=== PATIENT | female | born 1985 | race Caucasian/White ===

== ENCOUNTER 2017-02-02 19:04 | Emergency (ER) | payer OTHER ==
[~2017-02-02] VITALS: Ht 165.1 cm; Wt 130.5 kg
[~2017-02-02 19:04] MED LIST: NAPR-260 PO; PREN-39 PO
[2017-02-02 19:18] VITALS: Ht 165.1 cm; Wt 130.5 kg
[2017-02-02] MEDS ORDERED: ALBUTEROL 0.083% (NEB) 2.5 MG/3 ML AMP HHN STA (19:40)
[2017-02-02 19:52] LABS: URINE BLOOD (Dip) POC Trace-intact (NEGATIVE)
[2017-02-02] MEDS ORDERED: IPRATROPIUM (NEB) 0.5 MG/2.5 ML AMP HHN ONE (20:00)
[2017-02-02 20:26] LABS: ADD SCAN DIFF NO
[2017-02-02 20:36] LABS: BASOPHILS % 0.2 % (0.0-2.0); EOSINOPHILS % 0.1 % (0.0-7.0); HEMOGLOBIN 11.7 g/dl (12.0-16.0); LYMPHOCYTES # 1.3 10^3/ul (0.8-2.9); LYMPHOCYTES % 10.3 % (15.0-51.0); MEAN CORPUSCULAR HEMOGLOBIN 23.4 pg (29.0-33.0); MEAN CORPUSCULAR HGB CONC 31.6 g/dl (32.0-37.0); MEAN CORPUSCULAR VOLUME 74.1 fl (82.0-101.0); MONOCYTE # 0.3 10^3/ul (0.3-0.9); MONOCYTES % 2.1 % (0.0-11.0); NEUTROPHIL # 10.5 10^3/ul (1.6-7.5); NEUTROPHILS % 86.8 % (39.0-77.0); PLATELET COUNT 414 10^3/UL (140-415); RED BLOOD COUNT 4.99 10^6/ul (4.20-5.40); RED CELL DISTRIBUTION WIDTH 17.7 % (11.5-14.5); WHITE BLOOD COUNT 12.1 10^3/ul (4.8-10.8)
[2017-02-02 20:39] LABS: ADD UMIC YES; UR BILIRUBIN (Dip) NEGATIVE (NEGATIVE); UR BLOOD (Dip) TRACE (NEGATIVE); UR CLARITY CLEAR (CLEAR); UR COLOR LT. YELLOW (YELLOW); UR GLUCOSE (Dip) NEGATIVE (NEGATIVE); UR KETONES (Dip) NEGATIVE (NEGATIVE); UR LEUKOCYTE ESTERASE (Dip) TRACE (NEGATIVE); UR NITRITE (Dip) NEGATIVE (NEGATIVE); UR TOTAL PROTEIN (Dip) NEGATIVE (NEGATIVE); UR UROBILINOGEN (Dip) 1.0 E.U./dL (0.1-1.0)
[2017-02-02 20:51] LABS: URINE RBCS 0-2 /HPF (0)
[2017-02-02 20:52] LABS: UR BACTERIA RARE; UR SQUAMOUS EPITHELIAL CELL FEW
--- NOTE | 2017-02-02 21:58 | RADRPT ---
PROCEDURE: US OB. CLINICAL INDICATION: 31-year-old female with vaginal bleeding. TECHNIQUE: Transabdominal and transvaginal views of the pelvis are available for review. COMPARISON: No prior studies are available for comparison. FINDINGS: The uterus measures 9.1 cm sagittal by 4.6 cm AP by 6.7 cm transverse. It contains a gestational sa c with a circumferential grade 0 placenta. Placenta: Grade 0 circumferential. Presentation:No pole is identified. A small yolk sac is noted. Mean sac diameter:0.7 cm: 5 weeks 1 day. heart rate:Cardiac activity cannot be detected at this early stage with clarity. Amniotic fluid volume: Normal. Ultrasound estimated gestational age:5 weeks 1 day plus or minus 0 weeks 3 days. MARY (AUA): 10/04/2017. No ovarian or adnexal mass lesion is seen. There is no free fluid. The right ovary measured 2.8 x 1. 6 x 1.5 cm. There is normal blood flow to the right ovary and Doppler imaging. The left ovary winifred ures 2 x 1.3 by 1.4 cm and is normal blood flow on Doppler imaging. There is trace free fluid in th e cul-de-sac. IMPRESSION: 1. A gestational sac is identified. Mean sac diameter calculates out to 5 weeks 1 day plus or rolo s 0 weeks 3 days 2. A yolk sac is identified with a pole and heart rate are not yet detected at this age. Follow-up imaging is recommended to confirm viability. 3. Trace fluid in the cul-de-sac. 4. Normal ovaries. RPTAT:AAJJ Physician Michael Date Time Electronically viewed and signed by Physician Michael on 02/02/2017 21:58 JM/
[2017-02-02] MEDS ORDERED: ALBU8.5H3 INH (22:31)
--- NOTE | 2017-02-02 22:40 | ERD ---
ER Documentation Chief Complaint Date/Time DATE: 02/02/17 TIME: 22:36 Chief Complaint dry cough, sob has asthma inhaler doesnt work HPI Patient is a 31-year-old female who presents to the ED with cough, congestion and wheezing 3 days. She has a history of asthma and states this is similar to what she has experienced in the past. She states that she has been using her inhaler at home which is helped minimally with her symptoms. She denies fever or chills. Denies chest pain. Denies leg pain or leg swelling. Denies recent travel or recent surgeries. Patient also would like to get a test as she states that she has not had her period in the last 3 months and she is currently sexually active. She denies pelvic pain or vaginal bleeding or headache or dizziness. She has no other complaints. ROS All systems reviewed and are negative except as per history of present illness. Medications Home Meds Active Scripts Albuterol Sulfate* (Proair HFA*) 8.5 Gm Hfa.aer.ad, 2 PUFF INH Q4, #1 INHALER Prov:SILVIA CROW PA-C 02/02/17 Naproxen* (Naprosyn*) 500 Mg Tablet, 500 MG PO BID Y for PAIN AND/OR INFLAMMATION, #30 TAB Prov:SONIA REYNA PA-C 12/15/15 Reported Medications Vits W-Ca,Fe,Fa(<1MG) ( Vitamins) 1 Tab Tablet, 1 TAB PO DAILY 09/14/13 Allergies Allergies: Coded Allergies: No Known Allergy (Verified , 02/02/17) PMhx/Soc History of Surgery: Yes (Abdirizak RAMIREZ (1998)) Anesthesia Reaction: No Hx Neurological Disorder: No Hx Respiratory Disorders: Yes (ASTHMA) Hx Cardiac Disorders: No Hx Psychiatric Problems: No Hx Miscellaneous Medical Probl: No Hx Alcohol Use: No Hx Substance Use: No Hx Tobacco Use: No Smoking Status: Never smoker Physical Exam Vitals Vital Signs Date Time Temp Pulse Resp B/P Pulse Ox O2 Delivery O2 Flow Rate FiO2 02/02/17 20:04 97 22 97 21 02/02/17 19:18 98.5 110 18 165/75 100 Physical Exam GENERAL: Well-developed, well-nourished female. Appears in no acute distress. HEAD: Normocephalic, atraumatic. EYES: Pupils are equally reactive bilaterally. EOMs grossly intact. No conjunctival erythema. ENT: Moist mucous membranes. No uvula deviation. No kissing tonsils. No exudates. NECK: Supple. No lymphadenopathy or thyromegaly. No meningismus. negative kernig. negative brudinski. LUNG: Clear to auscultation bilaterally. No rhonchi, wheezing, rales or coarse breath sounds. HEART: Regular rate and rhythm. No murmurs, rubs or gallops. ABDOMEN: No scars, ecchymosis or rashes noted. Soft, nontender, and nondistended. Positive bowel sounds in all four quadrants. No rebound tenderness , no guarding. (-) McBurneys point tenderness. No CVA tenderness. BACK: No midline tenderness. Extremities: Equal pulses bilaterally. No peripheral clubbing, cyanosis or edema. No unilateral leg swelling. Negative Homans sign. No palpable cord. NEUROLOGIC: Alert and oriented. Moving all four extremities. 5/5 strength in all extremities. Normal speech. Steady gait. SKIN: Normal color. Warm and dry. No rashes or lesions. Capillary refill < 2 seconds Result Diagram: 02/02/171954 Results 24 hrs Laboratory Tests Test 02/02/17 19:45 02/02/17 19:55 02/02/17 19:56 Urine Color LT. YELLOW Urine Clarity CLEAR Urine pH 7.0 Urine Specific [place] 1.010 Urine Ketones NEGATIVE Urine Nitrite NEGATIVE Urine Bilirubin NEGATIVE Urine Urobilinogen 1.0 E.U./dL Urine Leukocyte Esterase TRACE Urine Microscopic RBC 0-2/HPF Urine Microscopic WBC 0-2/HPF Urine Squamous Epithelial Cells FEW Urine Bacteria RARE Urine Hemoglobin TRACE Urine Glucose NEGATIVE% Urine Total Protein NEGATIVE White Blood Count 12.110^3/ul Red Blood Count 4.9910^6/ul Hemoglobin 11.7g/dl Hematocrit 37.0% Mean Corpuscular Volume 74.1fl Mean Corpuscular Hemoglobin 23.4pg Mean Corpuscular Hemoglobin Concent 31.6g/dl Red Cell Distribution Width 17.7% Platelet Count 31227^3/UL Mean Platelet Volume 11.0fl Neutrophils % 86.8% Lymphocytes % 10.3% Monocytes % 2.1% Eosinophils % 0.1% Basophils % 0.2% Nucleated Red Blood Cells % 0.0/100WBC Neutrophils # 10.510^3/ul Lymphocytes # 1.310^3/ul Monocytes # 0.310^3/ul Eosinophils # 0.010^3/ul Basophils # 0.010^3/ul Nucleated Red Blood Cells # 0.010^3/ul Beta HCG, Quantitative 4433.7mIU/ml Bedside Urine pH (LAB) 7.5 Bedside Urine Protein (LAB) Negative Bedside Urine Glucose (UA) Negative Bedside Urine Ketones (LAB) Negative Bedside Urine Blood Trace-intact Bedside Urine Nitrite (LAB) Negative Bedside Urine Leukocyte Esterase (L Trace Current Medications Medications (Trade) Dose Ordered Sig/John Route PRN Reason Start Time Stop Time Status Last Admin Dose Admin Albuterol (Proventil 0.083% (Neb)) 5 mg ONCE STAT N 02/02/17 19:40 02/02/17 19:45 DC 02/02/17 20:06 Ipratropium [place] (Atrovent 0.02% (Neb)) 0.5 mg ONCE ONCE HHN 02/02/17 20:00 02/02/17 20:01 DC 02/02/17 20:06 Procedures/MDM ER COURSE: I kept the patient and/or family informed of laboratory and diagnostic imaging results throughout the emergency room course. EKG, MONITORS, & DIAGNOSTIC IMAGING: [place] [id number] Radiology Main Line: [phone] DIAGNOSTIC IMAGING REPORT Patient: LANA KAPLAN : 1985 Age: 31 Sex: F MR #: [id number] DOS: 02/02/171952 Ordering MD: SILVIA CROW PA-C Location: [facility] Room/Bed: PROCEDURE: US OB. CLINICAL INDICATION: 31-year-old female with vaginal bleeding. TECHNIQUE: Transabdominal and transvaginal views of the pelvis are available for review. COMPARISON: No prior studies are available for comparison. FINDINGS: The uterus measures 9.1 cm sagittal by 4.6 cm AP by 6.7 cm transverse. It contains a gestational sac with a circumferential grade 0 placenta. Placenta: Grade 0 circumferential. Presentation: No pole is identified. A small yolk sac is noted. Mean sac diameter: 0.7 cm: 5 weeks 1 day. heart rate: Cardiac activity cannot be detected at this early stage with clarity. Amniotic fluid volume: Normal. Ultrasound estimated gestational age: 5 weeks 1 day plus or minus 0 weeks 3 days. MARY (AUA): 10/04/2017. No ovarian or adnexal mass lesion is seen. There is no free fluid. The right ovary measured 2.8 x 1.6 x 1.5 cm. There is normal blood flow to the right ovary and Doppler imaging. The left ovary measures 2 x 1.3 by 1.4 cm and is normal blood flow on Doppler imaging. There is trace free fluid in the cul-de- sac. IMPRESSION: 1. A gestational sac is identified. Mean sac diameter calculates out to 5 weeks 1 day plus or minus 0 weeks 3 days 2. A yolk sac is identified with a pole and heart rate are not yet detected at this age. Follow-up imaging is recommended to confirm viability. 3. Trace fluid in the cul-de-sac. 4. Normal ovaries. RPTAT:AAJJ Physician Michael Date Time Electronically viewed and signed by Ildefonso Ya Physician on 02/02/2017 21:58 JM/ CC: SILVIA CROW PA-C LAB INTERPRETATION: CBC showed no evidence of systemic infection or severe anemia. UA showed no evidence of leukocytes, nitrites or hematuria. Urine test was positive. 4437 bhcg, o+ rh MEDICAL DECISION MAKING: This is a 31-year-old female who is who presents with cough and wheeze. Vital signs were reviewed. Patient is afebrile. Patient is not hypoxic. Patient is not toxic or ill-appearing. Patient has a newly diagnosed here in the ED. Ultrasound as of by radiologist shows A gestational sac is identified. Mean sac diameter calculates out to 5 weeks 1 day plus or minus 0 weeks 3 days A yolk sac is identified with a pole and heart rate are not yet detected at this age. Follow-up imaging is recommended to confirm viability. A breathing treatment was given in the patient with albuterol and she stated improvement in her symptoms. Low suspicion for ovarian torsion, PID , tuboovarian abscess, ectopic , bowel obstruction, pyelonephritis, UTI , appendicitis, cervicitis, septic , molar , HELLP syndrome, preeclampsia, eclampsia, placenta previa, placenta abruptia. Low suspicion for pneumonia, PE, pneumothorax, ACS, epiglottitis, obstruction, TB, pertussis, meningitis, sepsis. Her original pulse of 110 and was likely due to cough however but vitals were rechecked and her pulse decreased to 97. I have low suspicion for PE DISCHARGE: At this time, patient is stable for discharge and outpatient management with no new complaints during the ER course. Patient was sent home with albuterol and a copy of all imaging and laboratory studies and to follow-up with an OB doctor. Name of OB doctor was given to patient.. Patient will be discharged home with instructions to recheck for new or worsening symptoms such as fever, nausea, weakness, LOC and to follow up with primary care in the next 1-2 days. Patient was advised to return to the ER for any new or worsening symptoms. Plan was discussed and patient and/or family understands and agrees. Home instructions were given. Departure Diagnosis: Primary Impression: Weeks of gestation: less than 8 weeks Qualified Code: Z3A.01 - Less than 8 weeks gestation of Additional Impression: Cough Condition: Stable Patient Instructions: Asthma and Referrals: [employer]ATOR REFERRAL LIST VÍ[place] [id number] [facility] [address] [place], [place] [phone] OFFICE FAX DR.ABUSLEME LUCÍA [address] [place], [place] [phone] DR. GOETZFORMERLY [facility] [address] [place], [place] [phone] TIM CARVER [address] [facility] [address] [place] [id number] ANTONIA SHARMA [address] [place], [place] [phone] [facility] [address] [place], [place] [phone] [address]EN[address] [facility], [facility] [id number] - DR HOYOS, YAYA [address], [facility] [address] [address] [place], [place] [id number] [facility]. [address], [facility] [id number] DE, F[place] [address] [place], [place] [phone] Additional Instructions: Llame al doctor MAANA y rita xenia MARY PARA DENTRO DE 1-2 BANUELOS.Dgale a la secretaria que nosotros le instruimos hacer esta mary.Avise o llame si sanchez condicin se empeora antes de la mary. Regresa aqui si peor o no mejor. SILVIA CROW PA-C Feb 02, 2017 22:40
[2017-02-02 22:43] VITALS: BP 127/67; PULSE 87; RESP 16
== END 2017-02-02 22:43 | disposition home or self-care (01) ==
LOC: FTE 19:04
DX: O99.511 Diseases of the respiratory system complicating pregnancy, first trimester (principal); J45.909 Unspecified asthma, uncomplicated; R05 Cough; Z3A.01 Less than 8 weeks gestation of pregnancy
CPT/HCPCS: 36415; 76801; 76817; 81001; 84702; 85025; 86900; 86901; 94664; Z7502; Z7610; 81003

== ENCOUNTER 2017-07-14 12:18 | Emergency (ER) | payer OTHER ==
[~2017-07-14] VITALS: Ht 172.7 cm; Wt 127.7 kg
[~2017-07-14 12:18] MED LIST changes: +ALBU8.5H3 INH
[2017-07-14 12:32] VITALS: Ht 172.7 cm; Wt 127.7 kg
[2017-07-14] MEDS ORDERED: ALBUTEROL 0.083% (NEB) 2.5 MG/3 ML AMP NEB STA (13:39)
[2017-07-14] MEDS ORDERED: ALBU8.5H3 INH (14:41)
[2017-07-14 15:42] VITALS: BP 128/75; PULSE 89; RESP 19
--- NOTE | 2017-07-14 16:32 | ERD ---
ER Documentation Chief Complaint Chief Complaint HAS ASTHMA S/S 25 WEEKS HPI 2-year-old female presents the emergency department stating that she is 25 weeks and has an asthma exacerbation. Patient states that she has been coughing since yesterday. She denies any chest pain. She states that she ran out of her inhaler ROS All systems reviewed and are negative except as per history of present illness. Medications Home Meds Active Scripts Albuterol Sulfate* (Proair HFA*) 8.5 Gm Hfa.aer.ad, 2 PUFF INH Q4H Y for WHEEZING AND SOB, #1 INHALER Prov:BEBA NAVA PA-C 07/14/17 Albuterol Sulfate* (Proair HFA*) 8.5 Gm Hfa.aer.ad, 2 PUFF INH Q4, #1 INHALER Prov:SILVIA CROW PA-C 02/02/17 Naproxen* (Naprosyn*) 500 Mg Tablet, 500 MG PO BID Y for PAIN AND/OR INFLAMMATION, #30 TAB Prov:SONIA REYNA PA-C 12/15/15 Reported Medications Vits W-Ca,Fe,Fa(<1MG) ( Vitamins) 1 Tab Tablet, 1 TAB PO DAILY 09/14/13 Allergies Allergies: Coded Allergies: No Known Allergy (Verified , 02/02/17) PMhx/Soc History of Surgery: Yes (Abdirizak RAMIREZ (1997)) Anesthesia Reaction: No Hx Neurological Disorder: No Hx Respiratory Disorders: Yes (ASTHMA) Hx Cardiac Disorders: No Hx Psychiatric Problems: No Hx Miscellaneous Medical Probl: No Hx Alcohol Use: No Hx Substance Use: No Hx Tobacco Use: No Physical Exam Vitals Vital Signs Date Time Temp Pulse Resp B/P Pulse Ox O2 Delivery O2 Flow Rate FiO2 07/14/17 15:42 89 19 128/75 99 Room Air 07/14/17 14:11 103 18 98 21 07/14/17 12:32 97.6 103 18 134/77 98 Physical Exam Const: [] Head: Atraumatic Eyes: Normal Conjunctiva ENT: Normal External Ears, Nose and Mouth. Neck: Full range of motion..~ No meningismus. Resp: Clear to auscultation bilaterally Cardio: Regular rate and rhythm, no murmurs Abd: Soft, non tender, non distended. Normal bowel sounds Skin: No petechiae or rashes Back: No midline or flank tenderness Ext: No cyanosis, or edema Neur: Awake and alert Psych: Normal Mood and Affect Results 24 hrs Current Medications Medications (Trade) Dose Ordered Sig/John Route PRN Reason Start Time Stop Time Status Last Admin Dose Admin Albuterol (Proventil 0.083% (Neb)) 5 mg ONCE STAT NEB 07/14/17 13:39 07/14/17 13:40 DC 07/14/17 14:11 Procedures/MDM Well-appearing 32-year-old female who is 25 weeks presenting to the emergency department stating that she has an asthma exacerbation. On examination the lungs were clear, she had a normal pulse ox. She did not seem to be in any distress. Patient likely has a viral upper respiratory infection however she RT was consulted and she is given a breathing treatment. Patient states that she does feel better, she was given a prescription for ProAir air. I discussed with her to return to the ER for any worsening signs this patient understands and agrees this plan Departure Diagnosis: Primary Impression: Asthma with acute exacerbation Condition: Stable Patient Instructions: Asthma Medications, Asthma, Acute (Adult) Referrals: LISETTE CHRISTINA MD Additional Instructions: FOLLOW UP WITH YOUR PRIMARY CARE PHYSICIAN TOMORROW.Return to this facility if you are not improving as expected. Take all medicines as directed. Return to this facility if you are not improving as expected. BEBA NAVA PA-C Jul 14, 2017 16:32
== END 2017-07-14 15:43 | disposition home or self-care (01) ==
LOC: FTE 12:18
DX: O99.512 Diseases of the respiratory system complicating pregnancy, second trimester (principal); J45.901 Unspecified asthma with (acute) exacerbation; R05 Cough; Z3A.25 25 weeks gestation of pregnancy
CPT/HCPCS: 94664; Z7502; Z7610